=== PATIENT | male | born 1975 | race Caucasian/White ===

== ENCOUNTER 2023-10-15 06:58 | Outpatient (CLI) | payer OTHER | END 2023-10-15 06:59 | disposition home or self-care (01) | LOC: BICULT 06:58 | PROVIDERS: ATTEND Internal Medicine Gastroenterology | DX: R79.89 Other specified abnormal findings of blood chemistry (principal); K52.9 Noninfective gastroenteritis and colitis, unspecified; R93.2 Abnormal findings on diagnostic imaging of liver and biliary tract; K80.20 Calculus of gallbladder without cholecystitis without obstruction | CPT/HCPCS: 76705 ==